=== PATIENT | female | born 1955 | race Caucasian/White ===

== ENCOUNTER 2018-09-21 14:46 | Emergency (ER) | payer OTHER ==
--- NOTE | 2018-09-21 14:58 | EDPHY ---
H & P Stated Complaint: R wrist injury Time Seen by Provider: 09/21/18 14:58 HPI/ROS: CHIEF COMPLAINT: Right wrist deformity HISTORY OF PRESENT ILLNESS: The patient presents the ED with a right wrist deformity that occurred after she slipped and fell while walking on the ice. The patient was seen at urgent care and placed in a splint prior to arrival. She is sent to the ED for further evaluation. The patient denies any additional injury. She denies any acute numbness or weakness. REVIEW OF SYSTEMS: A comprehensive 10 point review of systems is otherwise negative aside from elements mentioned in the history of present illness. Source: Patient Exam Limitations: No limitations - Personal History Current Tetanus/Diphtheria Vaccine: Yes Current Tetanus Diphtheria and Acellular Pertussis (TDAP): Yes - Medical/Surgical History Hx Asthma: No Hx Chronic Respiratory Disease: No Hx Diabetes: No Hx Cardiac Disease: No Hx Renal Disease: No Hx Cirrhosis: No Hx Alcoholism: No Hx HIV/AIDS: No Hx Splenectomy or Spleen Trauma: No Other PMH: denies - Social History Smoking Status: Never smoked - Physical Exam Exam: General Appearance: Alert, no distress Head: Atraumatic Eyes: Pupils equal, round, reactive ENT, Mouth: No hemotympanum, no oral trauma Neck: Nontender, trachea midline Respiratory: No chest wall tender, no subcutaneous air, lungs clear bilaterally Cardiovascular: Regular rate and rhythm Abdomen: Abdomen is soft and nontender, pelvis stable Skin: No lacerations, No abrasion Back: No midline T/L/S pain Extremities: Tenderness, deformity and dorsal deformity noted to the right distal radius Neurological: Motor and sensory function intact throughout the right upper extremity Constitutional: Initial Vital Signs Temperature (C) 36.2 C 09/21/18 14:50 Heart Rate 63 09/21/18 14:50 Respiratory Rate 16 09/21/18 14:50 Blood Pressure 112/69 09/21/18 14:50 O2 Sat (%) 99 09/21/18 14:50 O2 Delivery Mode Room Air Allergies/Adverse Reactions: Penicillins Allergy (Verified 09/21/18 14:50) Home Medications: Medication Instructions Recorded Hydrocodone/APAP 5/325 [Montgomery 1 - 2 each PO Q6 PRN #20 tab 09/21/18 5/325] Medical Decision Making - Diagnostics Imaging Results: Imaging Impressions Wrist X-Ray 09/21/18 14:53 Impression: Acute angulated impacted and displaced intra-articular distal radius fracture. Procedures: GENERAL FRACTURE REDUCTION Procedure: Reduction of Angulated Displaced Colles fracture involving the right distal radius Neurovascular exam intact pre-procedure. Given hematoma block with 10 cc lidocaine without epi epinephrine for pain. The right angulated, deformed, displaced, comminuted Colles fracture was reduced using traction and dorsal pressure. Reassessed post-procedure. Neurovascular status intact-Normal Motor and sensory exam. Exam indicated reduction. Confirmed reduction on X-ray. Splint applied by myself. The procedure was performed by myself, Frederick Amor. ED Course/Re-evaluation: The patient presents to ED after a slip and fall while running today resulting in a displaced angulated Colles fracture. The patient was neurologically intact upon arrival. The patient underwent a hematoma block and closed reduction performed by myself. She was placed in ortho glass sugar-tong splint. The patient will be referred to Dr. Gudino from Orthopedic surgery a she does have a dorsal fragment preventing an anatomic reduction. I spoke with Dr. Gudino. He has requested the patient contact the office on Tuesday she will likely require surgery. Differential Diagnosis: Differential diagnosis considered includes fracture, sprain, dislocation - Data Points Medications Given: Discontinued Medications Ibuprofen (Motrin) 600 mg PO EDNOW ONE Stop: 09/21/18 15:02 Last Admin: 09/21/18 15:05 Dose: 600 mg Departure - Departure Disposition: Home, Routine, Self-Care Clinical Impression: Distal radius fracture, right Qualifiers: Encounter type: initial encounter Fracture type: closed Fracture morphology: Colles' Qualified Code(s): S52.531A - Colles' fracture of right radius, initial encounter for closed fracture Condition: Good Instructions: Wrist Fracture in Adults (ED) Additional Instructions: 1. Ice as directed 2. Take Ibuprofen or Motrin 600 mg by mouth three times a day. 3. Montgomery as needed for severe pain 4. Please follow up with the hand surgeon, Dr. Dimitrios Gudino, you have been referred to on Tuesday to schedule a follow-up appointment. You will likely require surgery for a perfect reduction. Referrals: Dimitrios Gudino MD [Medical Doctor] - As per Instructions Prescriptions: Hydrocodone/APAP 5/325 [Montgomery 5/325] 1 - 2 each PO Q6 PRN #20 tab PRN Reason: for pain
[2018-09-21] MEDS ORDERED: IBUPROFEN 600 MG TAB PO ONE (15:01)
[2018-09-21 16:37] VITALS: BP 114/74
== END 2018-09-21 16:37 | disposition home or self-care (01) ==
PROC: 2W3CX1Z Immobilization of Right Lower Arm using Splint (ICD-10-PCS; principal; 2018-09-21)
DX: S52.531A Colles' fracture of right radius, initial encounter for closed fracture (principal); W00.0XXA Fall on same level due to ice and snow, initial encounter; Y92.9 Unspecified place or not applicable; Y93.9 Activity, unspecified; Y99.9 Unspecified external cause status; Z88.0 Allergy status to penicillin